=== PATIENT | male | born 1985 | race Hispanic/Latino ===

== ENCOUNTER 2017-08-14 19:41 | Inpatient (IN) | payer MEDICAID ==
[2017-08-14 20:50] LABS: RBC URINE 1 /hpf (0-3); URINE BACTERIA RARE (<OCC); URINE BILIRUBIN NEGATIVE (NEGATIVE); URINE BLOOD NEGATIVE (NEGATIVE); URINE COLOR Yellow (YELLOW); URINE GLUCOSE (UA) NORMAL (Normal); URINE KETONE NEGATIVE (NEGATIVE); URINE LEUKOCYTE ESTERASE NEG Leu/uL (Negative); URINE PROTEIN NEGATIVE (NEGATIVE); URINE UROBILINOGEN NORMAL mg/dL (0.2-1.0); WBC URINE < 1 /hpf (0-5)
[2017-08-14 21:26] LABS: BASO % 0.6 % (0.0-2.0); EOS # 0.1 K/uL (0.0-0.7); EOS % 1.6 % (0.0-4.0); HEMATOCRIT 37.3 % (35.0-51.0); LYMPH # 1.1 K/uL (1.0-4.3); LYMPH % 19.3 % (20.0-40.0); MEAN CELL VOLUME 85.4 fL (80.0-94.0); MEAN CORPUSCULAR HEMOGLOBIN 29.9 pg (27.0-31.0); MEAN PLATELET VOLUME 7.1 fL (7.2-11.7); MONO # 0.4 K/uL (0.0-0.8); MONO % 7.1 % (0.0-10.0); NRBC % 0.1 % (0.0-2.0); RED CELL DISTRIBUTION WIDTH 14.1 % (11.5-14.5); WHITE BLOOD COUNT 5.9 K/uL (4.8-10.8)
--- NOTE | 2017-08-14 21:28 | C.PDOC ---
History Of Present Illness 31 year old male presents to the ER as a prescreen for heroin detox. Patient reports he has used 40-50 bags of heroin a day for the past 6 months, last use was 2-3 bags today. Denies physical complaints at this time. Time Seen by Provider: 08/14/17 20:30 Chief Complaint (Nursing): Substance Abuse History Per: Patient History/Exam Limitations: no limitations Onset/Duration Of Symptoms: Days Current Symptoms Are (Timing): Still Present Suicide/Self Injury Attempted (Context): None Modifying Factor(s): Narcotics Associated Symptoms: denies: Depression, Suicidal Thoughts, Suicidal Plan Involuntary Hold By: None Recent travel outside of the [place]: No Past Medical History Reviewed: Historical Data, Nursing Documentation, Vital Signs Vital Signs: Last Vital Signs Temp 97.8 F 08/14/17 20:04 Pulse 92 H 08/14/17 20:04 Resp 16 08/14/17 20:04 BP 118/79 08/14/17 20:04 Pulse Ox 99 08/14/17 22:04 - Medical History PMH: Deep Vein Thrombosis, Pulmonary Embolism, Seizures Family History: States: Unknown Family Hx - Social History Hx Alcohol Use: Yes Hx Substance Use: Yes Review Of Systems Constitutional: Negative for: Fever, Chills Gastrointestinal: Negative for: Nausea, Vomiting, Diarrhea Physical Exam - Physical Exam Appears: Non-toxic, No Acute Distress Skin: Normal Color, Warm, Dry Head: Atraumatic, Normacephalic Eye(s): bilateral: Normal Inspection Oral Mucosa: Moist Chest: Symmetrical, No Tenderness Cardiovascular: Rhythm Regular Respiratory: Normal Breath Sounds, No Rales, No Rhonchi, No Wheezing Gastrointestinal/Abdominal: Soft, No Tenderness Neurological/Psych: Oriented x3, Normal Speech ED Course And Treatment - Laboratory Results Result Diagrams: 08/14/17 21:19 08/14/17 21:19 Lab Interpretation: No Acute Changes (Mild hyponatremia, asymptomatic, UDS + cocaine, benzos, opiates) O2 Sat by Pulse Oximetry: 99 (Room air) Pulse Ox Interpretation: Normal Progress Note: Blood work and urinalysis ordered. Patient is medically cleared for detox admission. Disposition - Disposition Disposition: HOSPITALIZED Disposition Time: 22:34 Condition: STABLE - POA Present On Arrival: None - Clinical Impression Clinical Impression: Drug dependence - Scribe Statement The provider has reviewed the documentation as recorded by the Scribgelacio Watters All medical record entries made by the Iftikharibgelacio were at my direction and personally dictated by me. I have reviewed the chart and agree that the record accurately reflects my personal performance of the history, physical exam, medical decision making, and the department course for this patient. I have also personally directed, reviewed, and agree with the discharge instructions and disposition.
[2017-08-14 21:40] LABS: ALB/GLOB RATIO 0.9 (1.0-2.1); ALCOHOL SERUM < 10 mg/dl (0-10); ALKALINE PHOSPHATASE 90 U/L (38-126); ALT/SGPT 162 U/L (21-72); AST/SGOT 66 U/L (17-59); BILIRUBIN,TOTAL 1.1 mg/dL (0.2-1.3); BLOOD UREA NITROGEN 13 mg/dL (9-20); CALCIUM 8.3 mg/dl (8.6-10.4); CARBON DIOXIDE 28 mmol/L (22-30); CHLORIDE 96 mmol/L (98-107); GFR AFRICAN-AMERICAN > 60; GLUCOSE,RANDOM 102 mg/dL (75-110); POTASSIUM 4.8 mmol/L (3.6-5.2); SODIUM 130 mmol/L (132-148); TOTAL PROTEIN 7.9 g/dL (6.3-8.3)
[2017-08-14 23:01] VITALS: RESP 18
--- NOTE | 2017-08-15 00:16 | PCM.BM ---
Treatment Plan Problems - Problems identified on initial assessmt Ineffective Coping Skills Date Initiated: 08/15/17 Time Initiated: 00:15 Assessment reference: NA Status: Active Treatment assets and liabiliti Patient Assests: ADL independent, good support system Patient Liabilities: substance abuse, medical problems - Milieu Protocol Maintain good personal hygiene: daily Encourage regular showers, daily Remind patient to perform daily oral care, every shift Assist patient to perform ADL's Maintain personal safety: every shift Educate patient to report safety concerns to staff, every shift Monitor environment for contraband/sharps Medication safety: Monitor for expected outcome, potential side effects: every shift, Assess barriers to learning: every shift, Assess readiness for medication education: every shift
--- NOTE | 2017-08-15 15:50 | PCM.PSYCH ---
Initial Psychiatric Evaluation - Initial Psychiatric Evaluation Type of Admission: Voluntary Legal Status: Capacity Chief Complaint (in patient's own words): I need treatment for opioid History of Present Illness and Precipitating Events: This is a 31-year-old male with a medical history of DVT, pulmonary embolism, and spinal stenosis. Patient has psychiatric history of opioid use disorder, ADHD, seizures disorder, priapism admitted in the detox unit for heroin detox. Patient reported he start using heroine around 10 years ago. He was sober for 3-1/2 years. he relapsed around 7 months ago. Patient stated he was attending NA meetings in the past. He takes Suboxone on and off for the last 1 year. Additionally stated stop taking Suboxone by himself. He later stated that takes Suboxone some time. Patient stated he is injecting 30-40 bags on a daily basis. Not treating his needles. Patient reported withdrawal symptoms when he is not able to obtained or use heroine. Currently patient denied harder cold flashes weakness loss of appetite vomiting diarrhea nausea. Patient stated his last use was estimated at around 3 PM. Patient reported he is taking Ambien 10 mg at bedtime for insomnia. Recent stated he had the seizures in the past and he is taking the Ativan 1 mg ordered twice a day. Patient stated he is compliant with Ativan and Ambien. He was minimizing his symptoms and had a conflicting stories. On confrontation, he also accepted that he is taking Vyvanse for ADHD. On [facility], patient is on and off on 3 different benzos medication, including diazepam, Ativan and Klonopin. He was prescribed Klonopin for a one-month duration in July. This M.D. made him aware that he will not receive any Ambien or Ativan. He will have benzos taper detox and opiate detox. He can verbalize understanding and agree with the plan. Patient denied depressive symptoms, manic symptom. Patient reported he had priapism and Ativan is helping him. Currently patient denied any perceptual disturbances. Patient denied any SI or HI intent or plan. Social History: Pt is currently unemployed, but has an associates degree in business and attended [employer] ([employer] school) and specialized in hydraulics. Current Medications: Active Medications Generic Name Dose Route Start Last Admin Trade Name Freq PRN Reason Stop Dose Admin Clonidine HCl 0.1 mg 08/15/17 00:16 Catapres PO Q8 PRN COWS Score More or Equal to 5 Gabapentin 300 mg 08/15/17 11:45 08/15/17 14:13 Neurontin PO 300 mg TID ADILENE Administration Hydroxyzine HCl 25 mg 08/15/17 00:19 08/15/17 12:26 Atarax PO 25 mg TID PRN Administration Anxiety Ibuprofen 400 mg 08/15/17 00:20 Motrin Tab PO Q6H PRN Pain, moderate (4-7) Loperamide HCl 2 mg 08/15/17 00:16 Imodium PO Q8 PRN Diarrhea Lorazepam 2 mg 08/15/17 15:00 Ativan PO 08/20/17 14:59 Q4 ADILENE Taper Ondansetron HCl 4 mg 08/15/17 00:16 Zofran Tab PO Q8 PRN Nausea/Vomiting Pneumococcal Polyvalent Vaccine 0.5 ml 08/18/17 10:00 Pneumovax 23 Vaccine IM 08/18/17 10:01 .ONCE ONE Rivaroxaban 20 mg 08/15/17 10:00 08/15/17 10:42 Xarelto PO 20 mg DAILY ADILENE Administration Pt is prescribed: Xarelto 20mg QD and Neurontin 300mg TID PRN Past Psychiatric History - Past Psychiatric History Duration: Patient reported he had a detox in 2013 Nature of Treatment: Patient was on Suboxone maintenance for 1 year Explanation of prior treatment: Noncompliant with the treatment History of Abuse: Denied History of ETOH/Drug Use: Please see HPI History of Family Illness: Older brother has drug problem Pertinent Medical Hx (Current Medical&Sleep Prob, Allergies): Allergies Allergy/AdvReac Type Severity Reaction Status Date / Time No Known Allergies Allergy Verified 08/14/17 20:09 Gabapentin [Neurontin] 300 mg PO TID PRN 08/14/17 LORazepam [Ativan] 1 mg PO BID 08/14/17 Rivaroxaban [Xarelto] 20 mg PO DAILY 08/14/17 Pulmonary embolism, priapism, DVT, seizures disorder Review of Systems - Review of Systems All systems: reviewed and no additional remarkable complaints except (Please see HPI) Mental Status Examination - Personal Presentation Personal Presentation: Looks stated age, Dressed appropriate to season Additional comments: He appeared anxious, initially cooperative - Affect Affect: Constricted - Motor Activity Motor Activity: Calm - Reliability in Providing Information Reliability in Providing Information: Fair - Speech Speech: Organized - Mood Mood: Anxious - Formal Thought Process Formal Thought Process: No Impairment - Hallucinations/Delusions Hallucinations: Other Delusions: Other (Denied denied) - Obsessions/Compulsions Obsessions: None Compulsions: None - Cognitive Functions Orientation: Person, Place, Situation, Time Sensorium: Alert Attention/Concentration: Attentive Abstract Thinking: [place] Estimate of Intelligence: Average Judgement: Intact, as evidence by: Good judgement, Intact, as evidence by: Insight regarding need for hospitalization Memory: Recent intact, as evidence by: Ability to recall events of the day - Risk Risk: Seizure, Withdrawal - Strength & Assets Inventory Strength & Assets Inventory: Family support, Education, Employment history, Cooperative - Limitations Limitations: Other (Chronic drug use) DSM 5 DX - DSM 5 DSM 5 Diagnosis: Opioid use disorder, severe, dependence Hypnotic, sedative/anxiolytic use disorder, dependence, severe - Recommended/Plan of Treatment Treatment Recommendations and Plan of Treatment: Methadone detox and Ativan detox Gabapentin for augmentation and seizure prevention As needed meds and vitamins Attend groups and activities LA for abstinence and CBT for relapse prevention Support and psychoeducation Consider and encourage MAT~ Refer to after care 33 min Projected ELOS: 5-7 days Prognosis: Good with the treatment Discharge Plan and Discharge Criteria: Please see director of social services discharge plan - Smoking Cessation Smoking Cessation Initiated: Yes
[2017-08-15 17:20] VITALS: BP 127/70; PULSE 68; TEMP 98.2; O2SAT 99
[2017-08-18] MEDS ORDERED: Influenza Vaccine 60 mcg/0.5 mL SYR (4YR UP) IM ONE (10:00)
[2017-08-18] MEDS ORDERED: Pneumococcal 23-Valent Vaccine IM ONE (10:00)
== END 2017-08-15 17:00 | disposition left against medical advice (07) | DRG 743 ==
LOC: C.ER 19:41 → C.7D 22:29
PROVIDERS: ADMIT Psychiatry & Neurology Psychiatry; ATTEND Psychiatry & Neurology Psychiatry
DX: F11.20 Opioid dependence, uncomplicated (principal); F13.20 Sedative, hypnotic or anxiolytic dependence, uncomplicated; F90.9 Attention-deficit hyperactivity disorder, unspecified type; G47.00 Insomnia, unspecified; Z86.711 Personal history of pulmonary embolism; Z86.718 Personal history of other venous thrombosis and embolism